=== PATIENT | female | born 1995 | race Hispanic/Latino ===

== ENCOUNTER 2017-08-02 17:54 | Observation (INO) | payer MEDICAID ==
[2017-08-02 18:46] LABS: APPEARANCE,URINE Turbid (CLEAR); BILIRUBIN,URINE Negative (NEGATIVE); COLOR,URINE Yellow (YELLOW); GLUCOSE, URINE (UA) Negative (NEGATIVE); KETONES,URINE 15 mg/dL (NEGATIVE); LEUKOCYTE ESTERASE ,URINE Large (NEGATIVE); NITRATE,URINE Positive (NEGATIVE); OCCULT BLOOD,URINE Small (NEGATIVE); PH,URINE 6.5 (5.0-8.0); PROTEIN,URINE POS 2+ (NEGATIVE); UROBILINOGEN,URINE 0.2 mg/dL (0.2-1.0)
[2017-08-02 19:46] LABS: BACTERIA,URINE Few /HPF (None Seen); RBC,URINE None Seen /HPF (0-1); SQUAMOUS EPITHELIAL CELL,UR 0-2 /LPF (0-2); WBC,URINE >100 /HPF (0-1)
== END 2017-08-02 19:10 | disposition home or self-care (01) ==
LOC: LDH 17:54
DX: O26.893 Other specified pregnancy related conditions, third trimester (principal); O62.9 Abnormality of forces of labor, unspecified; Z3A.37 37 weeks gestation of pregnancy
CPT/HCPCS: 81001; G0378 ×2

== ENCOUNTER 2017-08-15 17:23 | Inpatient (IN) | payer MEDICAID ==
[~2017-08-15] VITALS: Ht 167.6 cm; Wt 74.8 kg
[2017-08-15] MEDS ORDERED: EPHEDRINE SULFATE 50 MG/ML AMPULE IVP PRN (18:00)
[2017-08-15] MEDS ORDERED: DINOPROSTONE 10 MG VAGINAL SUPP ONE (18:00)
[2017-08-15] MEDS: OXYTOCIN-LR 20 UNITS/1000 ML 1,000 ML IV SCH (18:00)
[2017-08-15] MEDS ORDERED: NALOXONE HCL 0.4 MG/1 ML ML IV PRN (18:00)
[2017-08-15] MEDS ORDERED: LACTATED RINGERS 500 ML 500 ML IV PRN (18:00)
[2017-08-15] MEDS ORDERED: MORPHINE SULFATE 10 MG/ML 1ML VIAL IM SCH (18:00)
[2017-08-15 18:16] LABS: HEMATOCRIT 34.7 % (36-48); MEAN CORPUSCULAR HEMOGLOBIN 29.3 pg (27.0-33.0); MEAN CORPUSCULAR HGB CONC 34.8 g/dL (32.0-36.0); MEAN CORPUSCULAR VOLUME 84.2 fL (79-99); PLATELET COUNT (AUTO) 306 K/uL (130-400); RED BLOOD CELL COUNT(AUTO) 4.12 MIL/uL (4.00-5.50); RED CELL DISTRIBUTION WIDTH 14.1 % (11.0-15.5); WHITE BLOOD COUNT (AUTO) 7.7 K/uL (4.8-10.8)
[2017-08-15 18:17] LABS: APPEARANCE,URINE Clear (CLEAR); BILIRUBIN,URINE Negative (NEGATIVE); COLOR,URINE Yellow (YELLOW); GLUCOSE, URINE (UA) Negative (NEGATIVE); KETONES,URINE Negative (NEGATIVE); LEUKOCYTE ESTERASE ,URINE Trace (NEGATIVE); NITRATE,URINE Negative (NEGATIVE); OCCULT BLOOD,URINE Negative (NEGATIVE); PROTEIN,URINE Negative (NEGATIVE)
[2017-08-15] MEDS: LACTATED RINGERS 1000ML 1,000 ML IV PRN (18:22)
[2017-08-15 18:25] LABS: BACTERIA,URINE Few /HPF (None Seen); RBC,URINE None Seen /HPF (0-1); SQUAMOUS EPITHELIAL CELL,UR 0-2 /HPF (0-2); WBC,URINE 0-1 /HPF (0-1)
[2017-08-15] MEDS ORDERED: MORPHINE SULFATE 10 MG/ML 1ML SYG IM ONE (22:45)
[2017-08-16] MEDS ORDERED: MORPHINE SULFATE 10 MG/ML 1ML SYG IM ONE
[2017-08-16] MEDS ORDERED: MORPHINE SULFATE 10 MG/ML 1ML VIAL ONE (00:15)
[2017-08-16] MEDS: LACTATED RINGERS 1000ML 1,000 ML IV PRN (00:22)
[2017-08-16] MEDS ORDERED: OXYTOCIN 10 USP UNITS/ML 20 UNIT in LACTATED RINGERS 1000ML 1,000 ML IV SCH (05:00)
[2017-08-16] MEDS ORDERED: OXYTOCIN 10 USP UNITS/ML ONE ×2 (07:44→17:56)
[2017-08-16] MEDS ORDERED: MEPERIDINE-PF 50 MG/ML SYG ONE (12:20)
[2017-08-16] MEDS ORDERED: LIDOCAINE HCL 1% 20 ML VIAL ONE (12:20)
[2017-08-16] MEDS ORDERED: PROMETHAZINE HCL 25 MG/ML 1ML AMPULE IM ONE (12:20)
[2017-08-16] MEDS ORDERED: MEPERIDINE-PF 50 MG/ML SYG IVP SCH (12:30)
[2017-08-16] MEDS ORDERED: PROMETHAZINE HCL 25 MG/ML 1ML AMPULE IM SCH (12:30)
[2017-08-16] MEDS ORDERED: MISOPROSTOL 200 MCG TABLET ONE (17:56)
[2017-08-16] MEDS ORDERED: ACETAMINOPHEN-CODEINE 300/30MG TAB PO PRN (18:00)
[2017-08-16] MEDS ORDERED: LANOLIN 30GM OINTMENT TP PRN (18:00)
[2017-08-16] MEDS ORDERED: BENZOCAINE/LANOLIN/ALOE VERA 60 ML AEROSOL TP PRN (18:00)
[2017-08-16] MEDS ORDERED: MISOPROSTOL 200 MCG TABLET VG SCH (18:00)
[2017-08-16] MEDS ORDERED: WITCH HAZEL 1 PAD TP PRN (18:00)
[2017-08-16] MEDS ORDERED: OXYTOCIN-LR 20 UNITS/1000 ML 1,000 ML IV SCH (18:00)
[2017-08-16] MEDS ORDERED: DIPH,PERTUSS(ACELL),TET VAC/PF 0.5 ML VIAL IM PRN (18:00)
[2017-08-16] MEDS: OXYTOCIN-LR 20 UNITS/1000 ML 1,000 ML IV SCH (18:00)
[2017-08-16] MEDS: IBUPROFEN 800 MG TAB PO PRN (19:59)
[2017-08-16] MEDS: DOCUSATE SODIUM 100 MG CAP PO SCH (20:32)
[2017-08-16 20:42] VITALS: BP 125/77
[2017-08-16 23:34] VITALS: BP 100/60
[2017-08-17 03:19] VITALS: BP 100/72
[2017-08-17 07:20] VITALS: BP 110/66
[2017-08-17] MEDS: DOCUSATE SODIUM 100 MG CAP PO SCH (09:08)
[2017-08-17] MEDS: IBUPROFEN 800 MG TAB PO PRN (09:08)
[2017-08-17 10:22] LABS: HEPATITIS Bs ANTIGEN SCREEN P Negative (Negative)
[2017-08-17 11:24] VITALS: BP 101/62
[2017-08-17 15:33] VITALS: BP 111/76
== END 2017-08-17 18:55 | disposition home or self-care (01) | DRG 560 ==
LOC: LDH 17:23 → WSH 08-16 20:35 → EDSTATUS 08-18 17:23
PROC: 10E0XZZ Delivery of Products of Conception, External Approach (ICD-10-PCS; principal; 2017-08-16)
PROC: 10907ZC Drainage of Amniotic Fluid, Therapeutic from Products of Conception, Via Natural or Artificial Opening (ICD-10-PCS; 2017-08-16)
PROC: 3E033VJ Introduction of Other Hormone into Peripheral Vein, Percutaneous Approach (ICD-10-PCS; 2017-08-16)
PROC: 3E0R3BZ Introduction of Anesthetic Agent into Spinal Canal, Percutaneous Approach (ICD-10-PCS; 2017-08-16)
PROC: 00HU33Z Insertion of Infusion Device into Spinal Canal, Percutaneous Approach (ICD-10-PCS; 2017-08-16)
PROC: 3E0234Z Introduction of Serum, Toxoid and Vaccine into Muscle, Percutaneous Approach (ICD-10-PCS; 2017-08-16)
DX: O69.81X0 Labor and delivery complicated by cord around neck, without compression, not applicable or unspecified (principal); O62.2 Other uterine inertia; Z37.0 Single live birth; Z23 Encounter for immunization; Z3A.39 39 weeks gestation of pregnancy
CPT/HCPCS: 36415; 81001; 85027; 86592; 86850; 86900; 86901; 87340; 90715; A4314; J2175; J2270; J2550; J2590; J7120